=== PATIENT | female | born 2000 | race Caucasian/White ===

== ENCOUNTER 2018-11-01 08:52 | Emergency (ER) | payer BC ==
[2018-11-01 09:28] LABS: Pregnancy Test - Urine (BHCG) Negative (Negative); Pregu Control Background? CLEAR/WHITE (CLR/WHITE); Pregu Control Bar Appear? YES (CONTROL BAR)
[2018-11-01] MEDS ORDERED: Dexamethasone 10 MG/ML VIAL ONE (09:50)
== END 2018-11-01 09:55 | disposition home or self-care (01) ==
LOC: SCSER 08:52
DX: R50.9 Fever, unspecified (principal)
CPT/HCPCS: 81025; 87804; 99283; J1100

== ENCOUNTER 2022-05-17 13:17 | Outpatient (CLI) | payer BC | END 2022-05-17 13:18 | disposition home or self-care (01) | LOC: BICMAMMO 13:17 | PROVIDERS: ATTEND Internal Medicine | DX: R93.89 Abnormal findings on diagnostic imaging of other specified body structures (principal); R92.2 Inconclusive mammogram | CPT/HCPCS: 77066; G0279 ==